=== PATIENT | female | born 1955 ===

== ENCOUNTER 2019-09-21 11:23 | Emergency (ER) | payer OTHER ==
[~2019-09-21] VITALS: Ht 160 cm; Wt 79.4 kg
[2019-09-21] MEDS ORDERED: CALAN80 MG PO (12:36)
== END 2019-09-21 17:27 | disposition home or self-care (01) ==
LOC: ER 11:23
DX: M79.671 Pain in right foot (principal); S82.291S Other fracture of shaft of right tibia, sequela; S93.491S Sprain of other ligament of right ankle, sequela; X58.XXXS Exposure to other specified factors, sequela